=== PATIENT | male | born 1960 | race African-American/Black ===

== ENCOUNTER 2022-10-21 08:07 | Outpatient (RCR) | payer BC, OTHER | END 2022-10-22 | disposition home or self-care (01) | LOC: ONC 08:07 | PROVIDERS: ATTEND Radiology Radiation Oncology | DX: Z51.0 Encounter for antineoplastic radiation therapy (principal); C79.31 Secondary malignant neoplasm of brain | CPT/HCPCS: 77300; 77301; 77334; 77338; 77370; 77373; 99205 ==

== ENCOUNTER 2022-11-08 08:45 | Outpatient (RCR) | payer BC | END 2022-11-22 | disposition home or self-care (01) | LOC: ONC 08:45 | PROVIDERS: ATTEND Radiology Radiation Oncology | DX: Z51.0 Encounter for antineoplastic radiation therapy (principal); C34.90 Malignant neoplasm of unspecified part of unspecified bronchus or lung; C79.31 Secondary malignant neoplasm of brain; I10 Essential (primary) hypertension; E78.00 Pure hypercholesterolemia, unspecified | CPT/HCPCS: 77336; 77370; 77373 ==